=== PATIENT | female | born 1965 | race Caucasian/White ===

== ENCOUNTER 2017-09-22 17:09 | Emergency (ER) | payer OTHER ==
[2017-09-22] MEDS ORDERED: IBUPROFEN 800 MG TABLET PO ONE (18:00)
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
[2017-09-22 19:46] VITALS: BP 138/81
== END 2017-09-22 19:40 | disposition home or self-care (01) ==
LOC: ER 17:09
DX: S16.1XXA Strain of muscle, fascia and tendon at neck level, initial encounter (principal); S29.012A Strain of muscle and tendon of back wall of thorax, initial encounter; V49.40XA Driver injured in collision with unspecified motor vehicles in traffic accident, initial encounter; R03.0 Elevated blood-pressure reading, without diagnosis of hypertension; R51 Headache; M54.2 Cervicalgia; M54.89 Other dorsalgia; R29.1 Meningismus
CPT/HCPCS: 72070; 72125; 99284